=== PATIENT | female | born 1985 | race Caucasian/White ===

== ENCOUNTER 2022-10-03 14:13 | Outpatient (REF) | payer OTHER, SELFPAY ==
[2022-10-05 20:53] LABS: TS Negative Control Passed; TS Panel A 0; TS Panel B 0; TS Positive Control Passed; TSpotTB Negative (Negative)
== END 2022-10-03 14:14 | disposition home or self-care (01) ==
LOC: HO.HHCL 14:13
PROVIDERS: Visit Provider Registered Nurse
DX: Z00.00 Encounter for general adult medical examination without abnormal findings (principal); Z11.1 Encounter for screening for respiratory tuberculosis
CPT/HCPCS: 36415; 86481

== ENCOUNTER 2022-11-19 09:25 | Outpatient (REF) | payer OTHER, SELFPAY ==
[2022-11-19 11:17] LABS: MANUAL DIFF FLAG NO
[2022-11-19 11:35] LABS: Basophils Percent Auto 0.4 % (0-2); Eosinophils Absolute Auto 0.1 X10*3/uL (0.0-0.4); Eosinophils Percent Auto 1.9 % (0-4); Hematocrit 39.7 % (37.0-47.0); Imm Gran Abs Auto 0.02 X10*3/uL (0.00-0.03); Imm Gran Pct Auto 0.3 % (0.0-0.4); Lymphocytes Absolute Auto 1.4 X10*3/uL (1.2-4.9); Lymphocytes Percent Auto 18.7 % (20-40); Mean Corpuscular HGB Conc 32.7 g/dl (31.0-35.0); Mean Corpuscular Hemoglobin 30.7 pg (27.0-33.0); Mean Corpuscular Volume 93.6 fL (80.0-98.0); Mean Platelet Volume 10.8 fL (9.4-12.3); Monocytes Absolute Auto 0.7 X10*3/uL (0.1-1.2); Monocytes Percent Auto 9.7 % (2-11); Platelet Count 296 X10*3/uL (160-400); Red Blood Count 4.24 X10*6/uL (4.20-5.50); Red Cell Distribution Width 13.1 % (11.0-16.0); White Blood Count 7.3 X10*3/uL (4.8-10.8)
[2022-11-19 12:13] LABS: Estimated Average Glucose 100 mg/dL; Hemoglobin A1c % 5.1 % (<6.0)
[2022-11-19 12:29] LABS: Alanine Aminotransferase 16 U/L (0-31); Albumin Level 4.2 g/dL (3.5-5.0); Alkaline Phosphatase 39 U/L (39-117); Anion Gap 10 (12-20); Aspartate Amino Transferase 21 U/L (5-31); Bilirubin Total 0.6 mg/dL (0.0-1.0); Blood Urea Nitrogen 12 mg/dL (9-16); Carbon Dioxide 24 mmol/L (22-29); Chloride 106 mmol/L (96-108); Cholesterol 208 mg/dL (<200); Estimated Glomerular Filt Rate > 60; Glucose Random 85 mg/dL (60-115); HDL Cholesterol 94 mg/dL (>40); LDL Cholesterol Calculated 96 mg/dL (<100); Potassium 3.9 mmol/L (3.3-5.1); Sodium 136 mmol/L (135-145); TSH reflex Free T4 0.82 uIU/mL (0.32-4.0); Total Protein 7.6 g/dL (6.5-8.0); Triglycerides 94 mg/dL (<150)
[2022-11-19 13:11] LABS: CT PCR NOT DETECTED (Not Detect.); NG PCR NOT DETECTED (Not Detect.)
[2022-11-20 04:13] LABS: Syphilis Screen Nonreactive (Nonreactive)
[2022-11-20 08:18] LABS: HIV AB/AG Nonreactive (Nonreactive); HIV Num 1 0.07 S/CO (0.00-0.99)
[2022-11-20 14:17] LABS: HCV Log PCR <1.18 NOT DETECTED Log IU/mL (NOT DETECTED); HepC Viral Load <15 NOT DETECTED IU/mL (NOT DETECTED)
== END 2022-11-19 09:26 | disposition home or self-care (01) ==
LOC: HO.HHCL 09:25
PROVIDERS: Visit Provider Registered Nurse
DX: Z00.00 Encounter for general adult medical examination without abnormal findings (principal); Z20.2 Contact with and (suspected) exposure to infections with a predominantly sexual mode of transmission; Z13.29 Encounter for screening for other suspected endocrine disorder; Z13.1 Encounter for screening for diabetes mellitus; Z13.220 Encounter for screening for lipoid disorders
CPT/HCPCS: 0353U; 80053; 80061; 83036; 84443; 85025; 86780; 87389; 87522

== ENCOUNTER 2024-06-24 10:53 | Outpatient (REF) | payer OTHER, SELFPAY ==
--- OUTSIDE RECORDS SUMMARY | 2024-06-24 13:06 | XMS_ITS | Encounter Summary ---
Author Organization [employer] Address [address] [facility] 7t [place] [address] Care Team Providers Care Conductor Freight Name Role Phone CristyKelli mendieta CARRILLO Primary Care Provider [phone] Reason for Referral * Imaging (Routine) - Authorized Specialty Diagnoses / Procedures Referred By Contac t Referred To Contact Radiology Diagnoses Abnormal uterine bleeding Procedures US Pelvis Transvaginal Natalie Wayne NP [address] [place] [address] Phone: tel: fax: [address] Phone: tel: fax: Referral ID Status Reason Start Date Expiration Date V isits Requested Visits Authorized [id number] Authorized 06/24/2024 06/24/2025 1 1 * Imaging (Routine) - Authorized Specialty Diagnoses / Procedures Referred By Contac t Referred To Contact Radiology Diagnoses Abnormal uterine bleeding Procedures Us Pelvis complete Natalie Wayne NP [address] [place] [address] Phone: tel: fax: [address] Phone: tel: fax: Referral ID Status Reason Start Date Expiration Date V isits Requested Visits Authorized [id number] Authorized 06/24/2024 06/24/2025 1 1 Reason for Visit * Reason Comments Menstrual Problem Encounter Details Date Type Department Care Team ([facility] st Contact Info) Description 06/24/2024 10:00 AM EDT Office Visit [facility] [address] [place] [address] Natalie Wayne NP [address] [place] [address] Abnormal uterine bleeding (Primary Dx); Cervical cancer screening Social History Tobacco Use Types Packs/Day Years Used Date Smoking Tobacco: Never Assessed Depression Answer Date Recorded Patient Health Questionnaire-9 Score 0 11/14/2022 Housing Stability Answer Date Recorded What is your housing situation today? Not on adali e 11/11/[address] you li ve. Do you have problems with any of the following? None of the above 11/11/2023 Food Insecurity Answer Date Recorded Within the past 12 months, y ou worried that your food would run out before you got money to buy more: Never True 01/28/2023 Within the past 12 months,th e food you bought just didn't last and you didn't have enough money to get more: Never True 08/2022 Transportation Answer Date Recorded In the past 12 months, has l ack of transportation kept you from medical appts, meetings, work or from getting things needed for daily living? No 01/28/2023 Utilities Answer Date Recorded In the past 12 months, has t he electric, gas, oil or water company threatened to shut off services in your home? No 01/28/2023 Depression Answer Date Recorded Patient Health Questionnaire-2 Score 0 11/14/2022 Comments Unknown Sex and Gender Information Value Date Recorded Sex Assigned at Female 01/22/2022 10:14 AM EDT Legal Sex Female 10:14 AM EDT Gender Identity Female 01/22/2022 10:14 AM EDT Sexual Orientation Straight 01/22/2022 10 :14 AM EDT documented as of this encounter Last Filed Vital Signs Vital Sign Reading Time Taken Comments Blood Pressure 144/86 06/24/2024 9:44 AM EDT Pulse 76 06/24/2024 9:44 AM EDT Temperature 36.7 ??C (98.1 ??F) 06/24/2024 9:44 AM ED T Respiratory Rate 16 06/24/2024 9:44 AM EDT Oxygen Saturation 98% 06/24/2024 9:44 AM EDT Inhaled Oxygen Concentration - - Weight 77.1 kg (170 lb) 06/24/2024 9:44 AM EDT Height - - Body Mass Index 30.11 11/14/2022 2:44 PM EDT documented in this encounter Progress Notes * Natalie Wayne NP - 06/24/2024 10:00 AM EDT SUBJECTIVE: Suzi Mar is a 38 y.o. female who presents to the [facility] for a sick visit. Denies recent illness, injury, or hospitalization. HPI Complains of vaginal bleeding extending 3 weeks after normal menstrual pattern. LMP 06/05/24 with duration of 5 days. Had one day of spotting before heavy bleeding returned. Has been using regular size pads, changing 2-3x an hr. Feels tired and weak. Has bloating and abdominal cramping. This is affecting her normal routine as she is not able to go to the gym. She is sexually active with AMAB partner and does not use condoms. Had tubal ligation in 2016. Review of Systems Constitutional: Negative. Negative for chills and fever. Respiratory: Negative for chest tightness and shortness of breath. Cardiovascular: Negative for chest pain. Gastrointestinal: Negative for abdominal pain, constipation, diarrhea and nausea. Genitourinary: Positive for menstrual problem and vaginal bleeding. Negative for dysuria and vaginal discharge. Musculoskeletal: Negative for arthralgias, back pain, myalgias and neck pain. Skin: Negative. Negative for rash and wound. Neurological: Negative for weakness, light-headedness and headaches. Psychiatric/Behavioral: Negative for behavioral problems, confusion, decreased concentration and suicidal ideas. OBJECTIVE: Visit Vitals BP (!) 144/86 (BP Location: Left arm, Patient Position: Sitting, BP Cuff Size: Adult) Pulse 76 Temp 98.1 ??F (36.7 ??C) (Temporal) Resp 16 Wt 170 lb (77.1 kg) SpO2 98% BMI 30.11 kg/m?? BSA 1.85 m?? Patient Active Problem List Diagnosis Chronic constipation Generalized anxiety disorder Healthcare maintenance Office Visit on 06/24/2024 Component Date Value Ref Range Status Preg Test, Ur 06/24/2024 Negative Negative, Indeterminate, None Detected, Invalid, Specimen unsatisfactory for evaluation, Weakly Positive Final Physical Exam Exam conducted with a stereo equipment installer present (MAXIME Sanchez). Constitutional: General: She is not in acute distress. Appearance: Normal appearance. She is not ill-appearing. HENT: Head: Normocephalic and atraumatic. Right Ear: External ear normal. Left Ear: External ear normal. Nose: Nose normal. Eyes: General: No scleral icterus. Extraocular Movements: Extraocular movements intact. Pulmonary: Effort: Pulmonary effort is normal. No respiratory distress. Genitourinary: Labia: Right: No rash, tenderness, lesion or injury. Left: No rash, tenderness, lesion or injury. Vagina: No signs of injury and foreign body. No vaginal discharge, erythema or prolapsed vaginal ferguson. Cervix: Cervical bleeding present. No cervical motion tenderness. Comments: Small patch of brownish discoloration in 7 o'clock location of cervix Musculoskeletal: General: Normal range of motion. Cervical back: Normal range of motion. Neurological: General: No focal deficit present. Mental Status: She is alert and oriented to person, place, and time. Gait: Gait normal. Psychiatric: Mood and Affect: Mood normal. Behavior: Behavior normal. Assessment/Plan Diagnoses and all orders for this visit: Abnormal uterine bleeding Comments: -negative Hcg today -urine sample sent for STI testing -TSH and CBC ordered to eval for thyroid dysfunction or resulting anemia -imaging ordered to rule out structural causes -advised trial ibuprofen TID for bleeding -return to clinic if bleeding is persistent Orders: - CBC auto differential; Future - TSH W/Reflex to FT4; Future - POCT Urine - Chlamydia/N. Gonorrhoeae RNA, TMA, Urine; Future - Us Pelvis complete; Future - US Pelvis Transvaginal; Future - ibuprofen 800 MG tablet; Take 1 tablet (800 mg) by mouth 3 times daily for 10 days. Cervical cancer screening Comments: -per chart review last pap prossibly in 2002 -repeat in 5 years if normal today -will call with results Orders: - Pap Smear documented in this encounter Plan of Treatment Scheduled Orders Name Type Priority Associated Diagnoses Order Schedule CBC auto differential Lab Routine Abnormal uterine bleeding Expected: 06/24/2024 (Approximate), Expires: 06/24/2025 TSH W/Reflex to FT4 Lab Routine Abnormal uterine bleeding Expected: 06/24/2024 (Approximate), Expires: 06/24/2025 Chlamydia/N. Gonorrhoeae RNA, TMA, Urine Microbiology Routine Abnormal uterine bleeding Expected: 06/24/2024 (Approximate), Expires: 06/24/2025 Us Pelvis complete Imaging Routine Abnormal uterine bleeding Expected: 06/24/2024, Expires: 06/24/2025 US Pelvis Transvaginal Imaging Routine Abnormal uterine bleeding Expected: 06/24/2024, Expires: 06/24/2025 Pap Smear Pathology and Cytology Routine Cervical cancer screening Ordered: 06/24/2024 documented as of this encounter Procedures Procedure Name Priority Date/Time Associated Diagnosis Comments POCT , URINE Routine 06/24/2024 10:25 AM EDT Abnormal uterine bleeding documented in this encounter Results * POCT Urine (06/24/2024 10:25 AM EDT) Preg Test, Ur Negative Negative, Indeterminate, None Detected, Invalid, Specimen unsatisfactory for evaluation, Weakly Positive Urine 06/24/2024 10:2 5 AM EDT Natalieoumou Matson SUPERVISOR HOUSECLEANER POINT OF CARE TEST ENTER/EDIT O RDERABLES Final Result documented in this encounter Visit Diagnoses Diagnosis Abnormal uterine bleeding- Primary Unspecified disorder of menstruation and other abnormal bleeding from female genital tract Cervical cancer screening Screening for malignant neoplasm of the cervix documented in this encounter Additional Health Concerns Assessment Noted Time PHQ-9 Depression Total Score: 0 11/15/19 23 2:47 PM EDT documented as of this encounter Care Teams Conductor Freight Relationship Specialty Start Date End Date Kelli Combs FNP [address] [place] [id number] PCP - General Family Medicine 11/17/21 documented as of this encounter
--- OUTSIDE RECORDS SUMMARY | 2024-06-24 13:06 | XMS_ITS | Clinical Summary ---
Author Organization [facility] Address [address] [place] [address] Care Team Providers Care Image Editor Name Role Phone Unavailable Primary Care Provider Unavailabl e Social History Tobacco Use Types Packs/Day Years Used Date Smoking Tobacco: Never Assessed Comments Unknown Sex and Gender Information Value Date Recorded Sex Assigned at Not on file Legal Sex Female 3:51 AM EST Gender Identity Not on file Sexual Orientation Not on file Plan of Treatment Health Maintenance Due Date Last Done Comments Breast Cancer Screening 1983 DTaP,Tdap,and Td Vaccines (1 - Tdap) 07/30/2002 Hepatitis B Vaccines (1 of 3 - 19+ 3-dose series) 07/30/2002 Cervical Cancer Screening: P ap Smear 07/30/2004 COVID-19 Vaccine ( - 2023-2 5 season) 2023 Influenza Vaccine (Season Ended) 2024 HIB Vaccines Aged Out No longer eligi ble based on patient's age to complete this topic HPV Vaccines Aged Out No longer eligi ble based on patient's age to complete this topic Hepatitis A Vaccines Aged Out No long er eligible based on patient's age to complete this topic IPV Vaccines Aged Out No longer eligi ble based on patient's age to complete this topic MMR Vaccines Aged Out No longer eligi ble based on patient's age to complete this topic Meningococcal ACWY Vaccine Aged Out N o longer eligible based on patient's age to complete this topic Meningococcal B Vacine Aged Out No lo nger eligible based on patient's age to complete this topic Pneumococcal Vaccine: Pediat rics (0 to 5 Years) and At-Risk Patients (6 to 64 Years) Aged Out No longer eligible b ased on patient's age to complete this topic RSV Immunization Patients Un arik 20 months Aged Out No longer eligible b ased on patient's age to complete this topic Varicella Vaccines Aged Out No longer eligible based on patient's age to complete this topic
--- OUTSIDE RECORDS SUMMARY | 2024-06-24 13:06 | XMS_ITS | Encounter Summary ---
Author Organization [employer] Address [address] [place] [address] [address] [place] [address] Care Team Providers Care Application Support Developer Name Role Phone Kelli Combs Primary Care Provider [phone] Encounter Details Date Type Department Care Team ([facility] st Contact Info) Description 05/28/2022 Orders Only [facility] [address] [place], [place] [phone] Sarah Carreno LPN Social History Tobacco Use Types Packs/Day Years Used Date Smoking Tobacco: Never Assessed Comments Unknown Sex and Gender Information Value Date Recorded Sex Assigned at Female 01/22/2022 10:14 AM EDT Legal Sex Female 10:14 AM EDT Gender Identity Female 01/22/2022 10:14 AM EDT Sexual Orientation Straight 01/22/2022 10 :14 AM EDT documented as of this encounter Plan of Treatment Not on file documented as of this encounter Visit Diagnoses Not on filedocumented in this encounter Care Teams Application Support Developer Relationship Specialty Start Date End Date Kelli Combs FNP [address] [place] [address] PCP - General Family Medicine 11/17/21 documented as of this encounter
--- OUTSIDE RECORDS SUMMARY | 2024-06-24 13:06 | XMS_ITS | Clinical Summary ---
Author Organization [employer] Address [address] [place] [address] [address] [place] [address] Care Team Providers Care Custom Stock Maker Name Role Phone Kelli Combs CARRILLO Primary Care Provider [phone] Allergies Active Allergy Reactions Criticality Noted Date Comments Penicillins 12/04/2011 Medications PARoxetine (Paxil) 20 MG tablet Take 1 tablet (20 mg) by mouth Once daily. 90 tablet 3 11/14/2022 Active hydrOXYzine pamoate (Vistaril) 25 MG capsule Take 1 capsule (25 mg) by mouth if needed in the morning, at noon, and at bedtime for anxiety. 60 capsule 3 11/14/2022 Active Multiple Vitamin (multivitamin) tablet Take 1 tablet by mouth in the morning. Active ibuprofen 800 MG tabletIndicatio ns:Abnormal uterine bleeding Take 1 tablet (800 mg) by mouth 3 times daily for 10 days. 30 tablet 06/24/2024 5 Active Active Problems Problem Noted Date Diagnosed Date Healthcare maintenance 11/13/2022 Assessment & Plan (11/14/2022 6:21 PM EDT): PHQ: negative screen 11/14/22 STI: asymptomatic screening ordered 11/14/22 Contraception: s/p BTL Pap: due Smoking status: never-smoker Lipids: last WNL August 2017. Repeat ordered today. Mammogram: routine screening 43 y/o Colorectal Screening: routine screening 43 y/o DEXA: screen following menopause at 63 years Vaccines: updated Td 12/01/20 Last PE: 11/14/22 Chronic constipation 08/14/2016 Assessment & Plan (11/13/2022 7:46 PM EDT): ?? Continues with Miralax PRN ?? Lifestyle interventions including good hydration, movement, and fiber-rich diet Generalized anxiety disorder 08/14/2016 Assessment & Plan (11/14/2022 6:21 PM EDT): ?? Continues with paroxetine 20mg daily ?? Continue hydroxyzine 25mg PRN ?? Declines interest in behavioral health referral at this time. Follow up if interested in the future. Encounters Date Type Department Care Team Description 06/24/2024 10:00 AM EDT Office Visit [facility] [address] [place] [id number] Natalie Wayne NP Abnormal uterine bleeding (Primary Dx); Cervical cancer screening from Last 3 Months Immunizations Name Administration Dates Next Due DTP 10/10/1988, 6,04/09/1984,1983,1983 HPV, Quadrivalent 10/14/2007,03/05/2007,12/12/19 07 Hep B, adult 10/18/1999,11/14/1998,10/13/1998 Hib (HbO) 08/11/1985 IPV 10/10/1988, 6,01/11/1984,1983 Influenza, Split (incl. marizol fied surface antigen) 12/04/2011 MMR 01/26/1994,11/25/1984 TD (adult), 2 Lf tetanus tox oid, preservative free, adsorbed 12/01/2020,10/13/1998 Tdap 09/11/2010 Family History Medical History Relation Name Comments Diabetes Father Hypertension Father mild dementia Father Diabetes Mother Relation Name Status Comments Father Mother Social History Tobacco Use Types Packs/Day Years [...] Orientation Straight 01/22/2022 10 :14 AM EDT Last Filed Vital Signs Vital Sign Reading Time Taken Comments Blood Pressure 144/86 06/24/2024 9:44 AM EDT Pulse 76 06/24/2024 9:44 AM EDT Temperature 36.7 ??C (98.1 ??F) 06/24/2024 9:44 AM ED T Respiratory Rate 16 06/24/2024 9:44 AM EDT Oxygen Saturation 98% 06/24/2024 9:44 AM EDT Inhaled Oxygen Concentration - - Weight 77.1 kg (170 lb) 06/24/2024 9:44 AM EDT Height 160 cm (5' 3 ) 11/14/2022 2:44 PM EDT Body Mass Index 30.11 11/14/2022 2:44 PM EDT Plan of Treatment Health Maintenance Due Date Last Done Comments Alcohol/Substance Use Screening 1995 Tobacco Screening 1995 Family Planning (PISQ) 07/30/1998 Pap Smear 07/30/2004 Cervical Cancer Screening 07/30/2013 HPV/Cotest 07/30/2013 Mammogram 2023 SDOH Screening 11/06/2023 11/05/2022 Depression Screening 11/15/2023 11/14/2022, 11/15/19 COVID-19 Vaccine (3 season) 2023 09/02/2020, 08/12/2020 Influenza Vaccine (#1) 2023 12/04/2011 DTaP/Tdap/Td Vaccines (8 - Td or Tdap) 12/01/2030 12/01/2020, 09/11/2010, 10/13/1998, Additional history exists Zoster Vaccines (1 of 2) 07/30/2033 RSV Patients and Patients Aged 60 years or older (1 - 1-dose 75+ series) 07/30/2058 HIB Vaccines Completed 08/11/1985 IPV Vaccines Completed 10/10/1988, 04/26, 01/11/1984, Additional history exists Hepatitis B Vaccines Completed 10/18/1999, 11/14/1998, 10/13/1998 HPV Vaccines Completed 10/14/2007, 02/22, 12/11/2006 HIV Screening Completed 11/19/2022 Hepatitis C Screening Completed 11/19/2022 Hepatitis A Vaccines Aged Out No long er eligible based on patient's age to complete this topic Meningococcal Vaccine Aged Out No joshua lxea eligible based on patient's age to complete this topic Pneumococcal Vaccine: Pediatrics (0 to 5 Years) and At-Risk Patients (6 to 49) Years) Aged Out No longer eligible based on patient's age to complete this topic RSV under 20 months Aged Out No longe r eligible based on patient's age to complete this topic Rotavirus Vaccines Aged Out No longer eligible based on patient's age to complete this topic Procedures Procedure Name Priority Date/Time Associated Diagnosis Comments POCT , URINE Routine 06/24/2024 10:25 AM EDT Abnormal uterine bleeding HEPATITIS C VIRAL RNA, QUANTITATIVE, REAL-TIME PCR Routine 11/19/2022 9:30 AM EDT Healthcare maintenance HIV ANTIBODY/ANTIGEN ([place] [facility]) Routine 11/19/2022 9:30 AM EDT from Last 3 Months or Most Recently Relevant to Health Maintenance Results * POCT Urine (06/24/2024 10:25 AM EDT) Preg Test, Ur Negative Negative, Indeterminate, None Detected, Invalid, Specimen unsatisfactory for evaluation, Weakly Positive Urine 06/24/2024 10:2 5 AM EDT Natalie Tone BERNAL POINT OF CARE TEST ENTER/EDIT O RDERABLES Final Result * HIV Ab/Ag ([facility]) (11/19/2022 9:30 AM EDT) [facility] HIV AB/AG Nonreactive Nonreactive [facility] Comment:HIV-1 p24 Ag and/or HIV-1/HIV-2 Ab not detected.A test result that is nonreactive does not exclude thepossibility of exposure to or infection with HIV-1 and/orHIV-2. Nonreactive results in this assay for individualswith prior exposure to HIV-1 and/or HIV-2 may be due toantigen and antibody levels that are below the limit ofdetection of this assay.The [employer] HIV Ag/Ab Combo assay result andsupplemental assay results should be interpreted inconjunction with the patient's clinical presentation,history and other laboratory results. If the results areinconsistent with clinical evidence, additional testing issuggested to confirm the result. 11/19/2022 9:30 AM EDT 11/20/2022 7:44 AM EDT Kelli Combs MAT P[employer]ER LAB BLOOD ORDERABLES Final Res ult [facility] [address] [place] [phone] * Hepatitis C Viral RNA, Quantitative, Real-Time PCR (11/19/2022 9:30 AM EDT) [facility] Hepatitis C Viral Load <15 NOT DETECTED NOT DETECTED IU/mL [facility] HCV Log PCR <1.18 NOT DETECTED NOT DETECTED Log IU/mL [facility] Comment:This test was perfor med using Real-Time Polymerase ChainReaction.Reportable Range: 15 IU/mL to 100,000,000 IU/mL(1.18 Log IU/mL to 8.00 Log IU/mL).The analytical performance characteristics of thisassay have been determined by [employer].The modifications have not been cleared or approved bythe FDA. This assay has been validated pursuant to theCLIA regulations and is used for clinical purposes.For more information on this test, go to:http://education.[employer]-Digital/faq/CNY71w0(This link is being provided for informational/educational purposes only.)THIS TEST WAS PERFORMED AT:[employer] [place] [id number] MCKAY MD Blood 11/19/2022 9:30 AM EDT 11/19/2022 11:08 AM EDT Kelli Combs [facility] LAB BLOOD ORDERABLES Final Res ult [facility] [address] [place] [address] [phone] from Last 3 Months or Most Recently Relevant to Health Maintenance Insurance [facility] Care Teams Custom Stock Maker Relationship Specialty Start Date End Date Kelli Combs FNP [address] [place] [id number] PCP - General Family Medicine 11/17/21
--- OUTSIDE RECORDS SUMMARY | 2024-06-24 13:06 | XMS_ITS | Encounter Summary ---
Author Organization [employer] Address [address] [place] [address] [address] [place] [address] Care Team Providers Care Trial Court Judge Name Role Phone Kelli Combs Primary Care Provider [phone] Encounter Details Date Type Department Care Team ([facility] st Contact Info) Description 10/02/2022 Orders Only [facility] [address] [place], [place] [phone] Kelli Combs FNP [address] [place] [address] Health care maintenance Social History Tobacco Use Types Packs/Day Years Used Date Smoking Tobacco: Never Assessed Comments Unknown Sex and Gender Information Value Date Recorded Sex Assigned at Female 01/22/2022 10:14 AM EDT Legal Sex Female 10:14 AM EDT Gender Identity Female 01/22/2022 10:14 AM EDT Sexual Orientation Straight 01/22/2022 10 :14 AM EDT documented as of this encounter Plan of Treatment Scheduled Orders Name Type Priority Associated Diagnoses Orde r Schedule QuantiFERON??-TB Gold Plus, 1 Tube Lab Routine Health care maintenance Expected: 10/02/2022 (Approximate), Expires: 10/03/2023 documented as of this encounter Visit Diagnoses Diagnosis Health care maintenance documented in this encounter Care Teams Trial Court Judge Relationship Specialty Start Date End Date Kelli Combs FNP [address] [place] [address] PCP - General Family Medicine 11/17/21 documented as of this encounter
[2024-06-24 13:14] LABS: MANUAL DIFF FLAG NO
[2024-06-24 13:30] LABS: Basophils Absolute Auto 0.1 X10*3/uL (0.0-0.2); Basophils Percent Auto 0.9 % (0-2); Eosinophils Absolute Auto 0.2 X10*3/uL (0.0-0.4); Eosinophils Percent Auto 2.8 % (0-4); Hematocrit 35.6 % (37.0-47.0); Hemoglobin 11.5 g/dl (12.0-16.0); Imm Gran Abs Auto 0.02 X10*3/uL (0.00-0.03); Imm Gran Pct Auto 0.3 % (0.0-0.4); Lymphocytes Absolute Auto 1.7 X10*3/uL (1.2-4.9); Mean Corpuscular HGB Conc 32.3 g/dl (31.0-35.0); Mean Corpuscular Hemoglobin 27.7 pg (27.0-33.0); Mean Corpuscular Volume 85.8 fL (80.0-98.0); Mean Platelet Volume 10.1 fL (9.4-12.3); Monocytes Absolute Auto 0.7 X10*3/uL (0.1-1.2); Monocytes Percent Auto 10.5 % (2-11); Neutrophils Percent Auto 59.5 % (45-73); Platelet Count 366 X10*3/uL (160-400); Red Blood Count 4.15 X10*6/uL (4.20-5.50); White Blood Count 6.7 X10*3/uL (4.8-10.8)
[2024-06-24 13:59] LABS: TSH reflex Free T4 0.09 uIU/mL (0.32-4.0)
[2024-06-24 15:18] LABS: Free T4 (Free Thyroxine) 1.05 ng/dL (0.71-1.85)
[2024-06-25 02:17] LABS: CT PCR NOT DETECTED (Not Detect.); NG PCR NOT DETECTED (Not Detect.)
[2024-07-02 07:56] LABS: HPV Genotype 16 Negative (Negative); HPV Genotype 18 Negative (Negative); HPV High Risk Positive (Negative)
== END 2024-06-24 10:54 | disposition home or self-care (01) ==
LOC: HO.HHCL 10:53
PROVIDERS: Visit Provider Nurse Practitioner
DX: N93.9 Abnormal uterine and vaginal bleeding, unspecified (principal); Z12.4 Encounter for screening for malignant neoplasm of cervix; R87.612 Low grade squamous intraepithelial lesion on cytologic smear of cervix (LGSIL); R87.810 Cervical high risk human papillomavirus (HPV) DNA test positive
CPT/HCPCS: 36415; 84439; 84443; 85025; 87491; 87591; 87626; 88175

== ENCOUNTER 2024-07-29 12:59 | Outpatient (REF) | payer OTHER, SELFPAY ==
--- NOTE | ~2024-07-29 | US_ITS ---
CLINICAL HISTORY: AUB Transabdominal and transvaginal pelvic ultrasound Comparison: None Findings: Uterus 8.4 x 5.7 x 5.5 cm. Endometrium 9 mm. Small volume free fluid. Three uterine fibroids, largest 2.1 cm. Right ovary 3.6 x 1.4 x 1.3 cm. Left ovary 4.3 x 2.7 x 1.7 cm. No significant focal abnormality. Impression: Uterine fibroids, otherwise unremarkable This document has been electronically signed by: Zeeshan Phelps MD on 07/29/2024 18:37:38
--- OUTSIDE RECORDS SUMMARY | 2024-07-29 14:08 | XMS_ITS | Encounter Summary ---
Author Organization [employer] Address [address] [place] [address] [address] [place] [address] Care Team Providers Care Billing Typist Name Role Phone Kelli Combs Primary Care Provider [phone] Encounter Details Date Type Department Care Team (Late st Contact Info) Description 05/28/2022 Orders Only [facility] [address] [place], [place] [phone] Sarah Carreno LPN Social History Tobacco Use [...] on filedocumented in this encounter Care Teams Billing Typist Relationship Specialty Start Date End Date Kelli Combs FNP [address] [place] [address] PCP - General Family Medicine 11/17/21 documented as of this encounter
--- OUTSIDE RECORDS SUMMARY | 2024-07-29 14:08 | XMS_ITS | Clinical Summary ---
Author Organization [facility] ity Address [address] [place] [address] Care Team Providers Care Career Services Coordinator Name Role Phone Unavailable Primary Care Provider [...] age to complete this topic Meningococcal B Vaccine Aged Out No l onger eligible based on patient's age to complete [...]
--- OUTSIDE RECORDS SUMMARY | 2024-07-29 14:08 | XMS_ITS | Encounter Summary ---
Author Organization [employer] Address [address] [facility] [address] [place] [address] Care Team Providers Care Coach Name Role Phone Kelli Combs Primary Care Provider [phone] Encounter Details Date Type Department Care Team (Late st Contact Info) Description 10/02/2022 Orders Only [facility] [address] [place], [place] [phone] Kelli Combs FNP [address] [place] [address] Health care maintenance Social History Tobacco Use [...] maintenance documented in this encounter Care Teams Coach Relationship Specialty Start Date End Date Kelli oCmbs FNP [address] [place] [address] PCP - General Family Medicine 11/17/21 documented as of this encounter
--- OUTSIDE RECORDS SUMMARY | 2024-07-29 14:08 | XMS_ITS | Encounter Summary ---
Author Organization [employer] Address [address] [facility] 7t [place] [address] Care Team Providers Care Plastic Surgery Nurse Name Role Phone Kelli Combs CARRILLO Primary Care Provider [phone] Encounter Details Date Type Department Care Team (Late st Contact Info) Description 06/26/2024 Orders Only [facility] [address] [place], [place] [phone] Natalie Wayne NP [address] [place], [place] [phone] Subclinical hyperthyroidism (Primary Dx) Social History Tobacco Use Types Packs/Day Years [...] Type Priority Associated Diagnoses Orde r Schedule TSH W/Reflex to FT4 Lab Routine Subclinical hyperthyroidism Expected: 07/24/2024 (Approximate), Expires: 06/26/2025 T3, Total Lab Routine Subclinical hyperthyroidism Expected: 07/24/2024 (Approximate), Expires: 06/26/2025 documented as of this encounter Visit Diagnoses Diagnosis Subclinical hyperthyroidism- Primary Thyrotoxicosis without mention of goiter or other cause, without mention of thyrotoxic crisis or storm documented in this encounter Additional Health Concerns Assessment Noted Time PHQ-9 Depression Total Score: 0 11/15/19 23 2:47 PM EDT documented as of this encounter Care Teams Plastic Surgery Nurse Relationship Specialty Start Date End Date Kelli Combs FNP [address] [place] [phone] PCP - General Family Medicine 11/17/21 documented as of this encounter
--- OUTSIDE RECORDS SUMMARY | 2024-07-29 14:08 | XMS_ITS | Clinical Summary ---
Author Organization [employer] Address 75 [facility] 7t [place] [address] Care Team Providers Care Logistics Team Lead Name Role Phone Kelli Combs CARRILLO Primary Care Provider [phone] Allergies Active Allergy Reactions Criticality Noted Date [...] daily for 10 days. 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); Low grade squamous intraepithelial lesion (LGSIL) on Papanicolaou smear of vagina with positive (HPV) DNA test 06/29/[address] [address] Natalie Wayne NP Results 06/27/[address] [address] Fozia Graham RN Results; Lab Orders 06/26/2024 Orders Only [address] [address] Natalie Wayne NP Subclinical hyperthyroidism (Primary Dx) 06/24/2024 10:00 AM EDT Office Visit [facility] [address] [place] [address] Natalie Wayne NP Abnormal uterine bleeding (Primary Dx); Cervical cancer screening 06/24/2024 Orders Only [address] [address] Natalie Wayne NP from Last 3 Months Immunizations Name Administration Dates Next Due DTP 10/10/1988, 6,04/09/1984,1983,1983 HPV, Quadrivalent 10/14/2007,03/05/2007,12/12/19 07 Hep B, adult 10/18/1999,11/14/1998,10/13/1998 Hib (HbOC) 08/11/1985 IPV 10/10/1988, 6,01/11/1984,1983 Influenza, Split (incl. [...] Tobacco Screening 1995 Family Planning (PISQ) 07/30/1998 Mammogram 2023 SDOH Screening 11/06/2023 11/05/2022 Depression Screening 11/15/2023 11/14/2022, 11/15/19 COVID-19 Vaccine ( season) 2023 09/02/2020, 08/12/2020 Influenza Vaccine (#1) 2023 12/04/2011 Pap Smear 06/25/2027 06/24/2024 Cervical Cancer Screening 06/24/2029 HPV/Cotest 06/24/2029 06/24/2024 DTaP/Tdap/Td Vaccines (8 - Td or Tdap) [...] topic Meningococcal Vaccine Aged Out No joshua lexa eligible based on patient's age to complete [...] Procedure Name Priority Date/Time Associated Diagnosis Comments T4, FREE Routine 06/24/2024 10:56 AM EDT TSH W/REFLEX TO FT4 Routine 06/24/2024 1 0:56 AM EDT Abnormal uterine bleeding CBC WITH AUTO DIFFERENTIAL Routine 06/24/2024 10:56 AM EDT Abnormal uterine bleeding PAP SMEAR Routine 06/24/2024 10:55 AM EDT Cervical cancer screening HPV DNA, LOW/HIGH RISK Routine 06/24/2024 10:55 AM EDT CHLAMYDIA/N. GONORRHOEAE RNA, TMA, UROGENITAL Routine 06/24/2024 10:27 AM EDT POCT , URINE Routine 06/24/2024 10:25 AM EDT Abnormal uterine bleeding HEPATITIS C VIRAL RNA, QUANTITATIVE, REAL-TIME PCR Routine 11/19/2022 9:30 AM EDT Healthcare maintenance HIV ANTIBODY/ANTIGEN ([place] DPH) Routine 11/19/2022 9:30 AM EDT from Last 3 Months or Most Recently Relevant to Health Maintenance Results * (ABNORMAL) TSH W/Reflex to FT4 (06/24/2024 10:56 AM EDT) TSH reflex Free T4 0.09(L) 0.32 - 4.0 uIU/mL [facility] Blood Venous blood specimen / Unknown 06/24/2024 10:56 AM EDT 06/24/2024 1:05 PM EDT us Natalie Appram TOOL ENGINEER LAB BLOOD ORDERABLES Final Resu lt [facility] [address] [place] [phone] * (ABNORMAL) CBC auto differential (06/24/2024 10:56 AM EDT) Pathologist [facility] White Blood Count 6.7 4.8 - 10.8 X10*3/uL [facility] Red Blood Count 4.15(L) 4.20 - 5.50 X10*6/uL [facility] Hemoglobin 11.5(L) 12.0 - 16.0 g/dl [facility] Hematocrit 35.6(L) 37.0 - 47.0 % [facility] Mean Corpuscular Volume 85.8 80.0 - 98.0 fL [facility] Mean Corpuscular Hemoglobin 27.7 27.0 - 33.0 pg [facility] Mean Corpuscular HGB Conc 32.3 31.0 - 35.0 g/dl [facility] Red Cell Distribution Width 17.0(H) 11.0 - 16.0 % [facility] Platelet Count 366 160 - 400 X10*3/uL [facility] Mean Platelet Volume 10.1 9.4 - 12.3 fL [facility] Neutrophils Percent Auto 59.5 45 - 73 % [facility] Imm Gran Pct Auto 0.3 0.0 - 0.4 % [facility] Lymphocytes Percent Auto 26.0 20 - 40 % [facility] Monocytes Percent Auto 10.5 2 - 11 % [facility] Eosinophils Percent Auto 2.8 0 - 4 % [facility] Basophils Percent Auto 0.9 0 - 2 % [facility] NRBC Pct Auto 0.0 0.0 - 0.2 /100WBC [facility] Neutrophils Absolute Auto 4.0 2.0 - 8.3 x10*3/uL [facility] Imm Gran Abs Auto 0.02 0.00 - 0.03 X10*3/uL [facility] Lymphocytes Absolute Auto 1.7 1.2 - 4.9 X10*3/uL [facility] Monocytes Absolute Auto 0.7 0.1 - 1.2 X10*3/uL [facility] Eosinophils Absolute Auto 0.2 0.0 - 0.4 X10*3/uL [facility] Basophils Absolute Auto 0.1 0.0 - 0.2 X10*3/uL [facility] NRBC Abs Auto 0.000 0.0 - 0.012 X10*3/uL [facility] Blood Venous blood specimen / Unknown 06/24/2024 10:56 AM EDT 06/24/2024 1:05 PM EDT [facility] TOOL ENGINEER LAB BLOOD ORDERABLES Final Resu lt [facility] [address] [place] [phone] * T4, Free (06/24/2024 10:56 AM EDT) Pathologist [facility] Free T4 (Free Thyroxine) 1.05 0.71 - 1.85 ng/dL [facility] 06/24/2024 10:5 6 AM EDT 06/24/2024 1:05 PM EDT [facility] TOOL ENGINEER LAB BLOOD ORDERABLES Final Resu lt Performing Organization Address City/[facility]/ZIP Co de Phone Number [facility] [address] [place] [phone] * (ABNORMAL) HPV DNA, Low/High Risk (06/24/2024 10:55 AM EDT) HPV High Risk Positive(A) Negative [facility] HPV Genotype 16 Negative Negative [facility] HPV Genotype 18 Negative Negative [facility] Comment:HPV testing performe d at [facility] (CLIA#[id number]), [address] [place] [phone].Testing for HPV was performed using the Kristy JACKIE 6800system. The presence of HPV in the female genital tract isassociated with a number of diseases, including cervicalcarcinoma. The HPV DNA high risk pool tests for HPV 31, 33,35, 39, 45, 51, 52, 56, 58, 59, 66 and 68. The testing forHPV 16 and 18 genotypes has also been performed. A positiveresult indicates detection of nucleic acid sequences fromone or more subtypes, whereas a negative result indicatessuch sequences were not detected. 06/24/2024 10:5 5 AM EDT 06/25/2024 7:27 AM EDT Natalie Wayne NP LAB BLOOD ORDERABLES Final Resu lt [facility] [address] [place] [phone] * Pap Smear (06/24/2024 10:55 AM EDT) Swab Cervix uteri structure / Unknown 06/24/2024 10:55 AM EDT 06/25/2024 6:11 AM EDT Ashli [facility] - 06/29/2024 2:38 PM EDT ----- ------- Name: Suzi Mar ? Age/Sex: 38/F ? : 1985 Unit#: [id number] ?? Attend Dr: Natalie Wayne ?Re06/24/24 ?Status: DEP REF ? Location: [facility] ? Disch: ? ----- ------- SPEC : [id number] ? RECD: 06/25/24 ? STATUS: ??SOUT ? REQ NUM: [id number] ? CHARLES: 06/24/24-1054 ? SUBM DR: Natalie Wayne ? ENTERED: ??06/25/24 ?SP TYPE: Pap Smr ?OTHR DR: ? ORDERED: ??Pap Smear, PAP path review ? Interpretation ?? General Category: ? Epithelial cell abnormality. ?? Adequacy: ?Endocervical component present. ?? Interpretation: ? Low grade squamous intraepithelial lesion (TETO I). ?Clue cells present. ? HPV High Risk: ??Positive ? HPV Genotyping 16: ??Negative ?? HPV Genotyping 18: ??Negative ?Clinical Information LMP: 06/05/2024 (still bleeding) Previous PAP test: 2002 Other surgery: Tubal ligation Other history: ? Material Received ?? ThinPrep-Cervical ----- ------- Signed (signature on file) Geri Remedios 06/29/24 1438 ? ----- ------- ? END OF REPORT ? us Natalie Wayne NP LAB CYTOLOGY ORDERABLES Final R esult [facility] [address] [place] [phone] * Chlamydia/N. Gonorrhoeae RNA, TMA, Urogenitial (06/24/2024 10:27 AM EDT) CT PCR NOT DETECTED Not Detect. [facility] Comment:A not detected test result does not exclude the possibilityof infection because test results can be affected byimproper specimen collection, concurrent antibiotic therapy,or the number of organisms in the specimen which may bebelow the sensitivity of the test. As with many diagnostictests, results from the Xpert CT/NG assay should beinterpreted in conjunction with other laboratory andclinical data available to the clinician.Xpert CT/NG performance has not been evaluated in patientsless than 14 years of age. The assay should not be used forthe evaluationof suspected sexual abuse or for other medico-legalindications. Additional testing is recommended in anycircumstance when false positive or false negative resultscould lead to adverse medical, social or psychologicalconsequences. NG PCR NOT DETECTED Not Detect. [facility] Comment:A not detected test result does not exclude the possibilityof infection because test results can be affected byimproper specimen collection, concurrent antibiotic therapy,or the number of organisms in the specimen which may bebelow the sensitivity of the test. As with many diagnostictests, results from the Xpert CT/NG assay should beinterpreted in conjunction with other laboratory andclinical data available to the clinician.Xpert CT/NG performance has not been evaluated in patientsless than 14 years of age. The assay should not be used forthe evaluationof suspected sexual abuse or for other medico-legalindications. Additional testing is recommended in anycircumstance when false positive or false negative resultscould lead to adverse medical, social or psychologicalconsequences. 06/24/2024 10:2 7 AM EDT 06/24/2024 6:23 PM EDT Narrative [facility] - 06/25/2024 2:17 AM EDT Urine us Natalie Wayne NP LAB MICROBIOLOGY - GENERAL MEGAN WING Final Result [facility] [address] [place] [phone] * POCT Urine (06/24/2024 10:25 AM EDT) [facility] Preg Test, Ur Negative Negative, Indeterminate, None Detected, Invalid, Specimen unsatisfactory for evaluation, Weakly Positive Urine 06/24/2024 10:2 5 AM EDT Natalie Wayne NP POINT OF CARE TEST ENTER/EDIT O RDERABLES Final Result * HIV Ab/Ag ([facility]) (11/19/2022 9:30 AM EDT) [facility] HIV AB/AG Nonreactive Nonreactive [facility] Comment:HIV-1 p24 Ag and/or HIV-1/HIV-2 Ab not detected.A test result that is nonreactive does not exclude thepossibility of exposure to or infection with HIV-1 and/orHIV-2. Nonreactive results in this assay for individualswith prior exposure to HIV-1 and/or HIV-2 may be due toantigen and antibody levels that are below the limit ofdetection of this assay.The [employer] Compliance Manager HIV Ag/Ab Combo assay result andsupplemental assay results should be interpreted inconjunction with the patient's clinical presentation,history and other laboratory results. If the results areinconsistent with clinical evidence, additional testing issuggested to confirm the result. 11/19/2022 9:30 AM EDT 11/20/2022 7:44 AM EDT Kelli Combs REAL ESTATE SALESPERSON LAB BLOOD ORDERABLES Final Res ult [facility] [address] [place] [phone] * Hepatitis C Viral RNA, Quantitative, Real-Time PCR (11/19/2022 9:30 AM EDT) [facility] Hepatitis C Viral Load <15 NOT DETECTED NOT DETECTED IU/mL [facility] HCV Log PCR <1.18 NOT DETECTED NOT DETECTED Log IU/mL [facility] Comment:This test was perfor med using Real-Time Polymerase ChainReaction.Reportable Range: 15 IU/mL to 100,000,000 IU/mL(1.18 Log IU/mL to 8.00 Log IU/mL).The analytical performance characteristics of thisassay have been determined by [facility] [facility].The modifications have not been cleared or approved bythe FDA. This assay has been validated pursuant to theCLIA regulations and is used for clinical purposes.For more information on this test, go to:http://education.[facility]/faq/TNA03e9(This link is being provided for informational/educational purposes only.)THIS TEST WAS PERFORMED AT:[email or web address] [place] [id number] MCKAY MD Blood 11/19/2022 9:30 AM EDT 11/19/2022 11:08 AM EDT Kelli Combs REAL ESTATE SALESPERSON LAB BLOOD ORDERABLES Final Res ult [facility] [address] [place] [phone] from Last 3 Months or Most Recently Relevant to Health Maintenance Insurance [facility] , [address] [place] [address] Care Teams Logistics Team Lead Relationship Specialty Start Date End Date Kelli Combs FNP [address] [place] [phone] PCP - General Family Medicine 11/17/21
== END 2024-07-29 13:00 | disposition home or self-care (01) ==
LOC: HO.US 12:59
PROVIDERS: PCP Nurse Practitioner Family; Visit Provider Nurse Practitioner
DX: N93.9 Abnormal uterine and vaginal bleeding, unspecified (principal)
CPT/HCPCS: 76830; 76856

== ENCOUNTER → 2024-07-29 13:01 | Outpatient (BNV) | payer OTHER, SELFPAY | PROVIDERS: PCP Nurse Practitioner Family; Visit Provider Radiology Diagnostic Radiology | DX: D25.9 Leiomyoma of uterus, unspecified (principal) | CPT/HCPCS: 76830; 76856 ==

== ENCOUNTER 2025-03-24 08:36 | Outpatient (AMB) | payer OTHER, SELFPAY ==
--- OUTSIDE RECORDS SUMMARY | 2025-03-24 08:39 | XMS_ITS | Encounter Summary ---
Author Organization [employer] Address [address] [place] [address] [address] [place] [address] Care Team Providers Care Timber Management Assistant Name Role Phone Kelli Combs Primary Care Provider [phone] Encounter Details Date Type Department Care Team ([facility] st Contact Info) Description 05/28/[address] [facility] MEDICINE [address] [place], [place] [phone] Sarah Carreno LPN Social History Tobacco Use [...] on filedocumented in this encounter Care Teams Timber Management Assistant Relationship Specialty Start Date End Date Kelli Combs FNP [address] [place] [address] PCP - General Family Medicine 11/17/21 documented as of this encounter
--- OUTSIDE RECORDS SUMMARY | 2025-03-24 08:39 | XMS_ITS | Encounter Summary ---
Author Organization [employer] Address [address] [facility] 7t [place] [address] Care Team Providers Care Eight Section Blower Name Role Phone Kelli Combs CARRILLO Primary Care Provider [phone] Encounter Details Date Type Department Care Team ([facility] st Contact Info) Description 06/26/2024 Orders Only [facility] MEDICINE [address] [place], [place] [phone] Natalie Wayne NP [address] [place], [place] [phone] Subclinical hyperthyroidism (Primary Dx) Social History Tobacco [...] documented as of this encounter Care Teams Eight Section Blower Relationship Specialty Start Date End Date Kelli Combs FNP [address] [place] [phone] PCP - General Family Medicine 11/17/21 documented as of this encounter
--- OUTSIDE RECORDS SUMMARY | 2025-03-24 08:39 | XMS_ITS | Encounter Summary ---
Author Organization [employer] Address [address] [place] [address] [address] [place] [address] Care Team Providers Care Para Educator Name Role Phone Kelli Combs Primary Care Provider [phone] Encounter Details Date Type Department Care Team ([facility] st Contact Info) Description 10/02/2022 Orders Only [facility] MEDICINE [address] [place], [place] [phone] Kelli Combs FNP [address] [place] [address] Health care maintenance Social History Tobacco Use [...] Type Priority Associated Diagnoses Orde r Schedule QuantiFERON -TB Gold Plus, 1 Tube Lab Routine Health care maintenance Expected: 10/02/2022 (Approximate), Expires: 10/03/2023 documented as of this encounter Visit Diagnoses Diagnosis Health care maintenance documented in this encounter Care Teams Para Educator Relationship Specialty Start Date End Date Kelli Combs FNP [address] [place] [address] PCP - General Family Medicine 11/17/21 documented as of this encounter
--- OUTSIDE RECORDS SUMMARY | 2025-03-24 08:39 | XMS_ITS | Clinical Summary ---
Author Organization [facility] Address [address] [place] [address] Care Team Providers Care Towel Distributor Name Role Phone Unavailable Primary Care Provider [...] Cervical Cancer Screening: P ap Smear 07/30/2004 HPV Vaccines (1 - 3-dose SCD M series) 07/30/2010 Depression Screening 03/25/2024 COVID-19 Vaccine ( - 2024-2 6 season) 2024 Influenza Vaccine (#1) 2024 RSV Immunization Adult Patie nts (1 - 1-dose 75+ series) 07/30/2058 HIB Vaccines Aged Out No longer eligi [...] 5 Years) and At-Risk Patients (6 to 49 Years) Aged Out No longer eligible b ased on patient's age to complete this topic RSV Immunization Patients Un arik 20 months Aged Out No longer eligible b ased on patient's age to complete this topic Varicella Vaccines Aged Out No longer eligible based on patient's age to complete this topic
--- OUTSIDE RECORDS SUMMARY | 2025-03-24 08:39 | XMS_ITS | Clinical Summary ---
Author Organization [employer] Address [address] [place] [address] [address] [place] [address] Care Team Providers Care Inspector Fabric Name Role Phone Kelli Combs CARRILLO Primary Care Provider [phone] Allergies Active Allergy Reactions Criticality Noted Date [...] tablet by mouth in the morning. Active Active Problems Problem Noted Date Diagnosed [...] Assessment & Plan (11/13/2022 7:46 PM EDT): Continues with Miralax PRN Lifestyle interventions including good hydration, movement, and fiber-rich diet Generalized anxiety disorder 08/14/2016 Assessment & Plan (11/14/2022 6:21 PM EDT): Continues with paroxetine 20mg daily Continue hydroxyzine 25mg PRN Declines interest in behavioral health referral at this time. Follow up if interested in the future. Immunizations Immunization Administration Dates Next Due DTP 10/10/1988, 6,04/09/1984,1983,1983 HPV, Quadrivalent 10/14/2007,03/05/2007,12/12/19 07 Hep B, adult 10/18/1999,11/14/1998,10/13/1998 Hib (HbOC) 08/11/1985 IPV 10/10/1988, 6,01/11/1984,1983 Influenza, Split (incl. mraizol fied surface antigen) 12/04/2011 MMR 01/26/1994,11/25/1984 TD [...] t he electric, gas, oil or water [employer] threatened to shut off services in your [...] 76 06/24/2024 9:44 AM EDT Temperature 36.7 C (98.1 F) 06/24/2024 9:44 AM EDT Respiratory Rate 16 06/24/2024 9:44 AM EDT Oxygen Saturation 98% 06/24/2024 9:44 AM EDT Inhaled Oxygen Concentration - - Weight 77.1 kg (170 lb) 06/24/2024 9:44 AM EDT Height 160 cm (5' 3 ) 11/14/2022 2:44 PM EDT Body Mass Index 30.11 11/14/2022 2:44 PM EDT Plan of Treatment Health Maintenance Due Date Last Done Comments Disability Screening 1985 Alcohol/Substance Use Screening 1995 Tobacco Screening 1995 Family Planning (PISQ) 07/30/1998 Mammogram 2023 SDOH Screening 11/06/2023 11/05/2022 Depression Screening 11/15/2023 11/14/2022, 11/15/19 23 COVID-19 Vaccine ( season) 2024 09/02/2020, 08/12/2020 Influenza Vaccine (#1) 2024 12/04/2011 Pap Smear 06/25/2027 06/24/2024 Cervical Cancer [...] Years) and At-Risk Patients (6 to 49) Years Aged Out No longer eligible based on patient's age to complete this topic RSV under 20 months Aged Out No longe r eligible based on patient's age to complete this topic Rotavirus Vaccines Aged Out No longer eligible based on patient's age to complete this topic Procedures Procedure Name Priority Date/Time Associated Diagnosis Comments HPV DNA, LOW/HIGH RISK Routine 06/24/2024 10:55 AM EDT PAP SMEAR Routine 06/24/2024 10:55 AM EDT Cervical cancer screening HEPATITIS C VIRAL RNA, QUANTITATIVE, REAL-TIME PCR Routine 11/19/2022 9:30 AM EDT Healthcare maintenance HIV ANTIBODY/ANTIGEN ([place] DPH) Routine 11/19/2022 9:30 AM EDT from Last 3 Months or Most Recently Relevant to Health Maintenance Results * (ABNORMAL) HPV DNA, Low/High Risk (06/24/2024 10:55 AM EDT) HPV High Risk Positive(A) Negative [facility] HPV Genotype 16 Negative Negative [facility] HPV Genotype 18 Negative Negative [facility] Comment:HPV testing performe d at [facility] (CLIA#[id number]), [address] [place] [id number].Testing for HPV was performed using the Kristy [...] 5 AM EDT 06/25/2024 7:27 AM EDT us Natalie Wayne SALES TRAINING REPRESENTATIVE LAB BLOOD ORDERABLES Final Resu lt [facility] [address] [place] [phone] * Pap Smear (06/24/2024 10:55 AM EDT) Swab Cervix uteri structure / Unknown 06/24/2024 10:55 AM EDT 06/25/2024 6:11 AM EDT Ashli [facility] - 06/29/2024 2:38 PM EDT ----- ------- Name: MarSuzi Age/Sex: 38/F : 1985 Unit#: [id number] Attend Dr: Natalie Wayne Re06/24/24 Status: DEP REF Location: [facility] [address] Disch: ----- ------- SPEC : [id number] RECD: 06/25/24 STATUS: SANDY PAZ NUM: [id number] CHARLES: 06/24/[address] [facility] DR: Natalie Wayne ENTERED: 06/25/24 SP TYPE: Pap Smr OTHR DR: ORDERED: Pap Smear, PAP path review Interpretation General Category: Epithelial cell abnormality. Adequacy: Endocervical component present. Interpretation: Low grade squamous intraepithelial lesion (TETO I). Clue cells present. HPV High Risk: Positive HPV Genotyping 16: Negative HPV Genotyping 18: Negative Clinical Information LMP: 06/05/2024 (still bleeding) Previous PAP test: 2002 Other surgery: Tubal ligation Other history: Material Received ThinPrep-Cervical ----- ------- Signed (signature on file) Geri Whittaker 06/29/24 1438 ----- ------- END OF REPORT Natalie Wayne NP LAB CYTOLOGY ORDERABLES Final R esult [facility] [address] [place] [address] [phone] * HIV Ab/Ag (HELGA HENDERSON) (11/19/2022 9:30 AM EDT) Pathologist [facility] [place] HIV AB/AG Nonreactive Nonreactive [facility] Comment:HIV-1 p24 Ag and/or HIV-1/HIV-2 Ab not detected.A test result that is nonreactive does not exclude thepossibility of exposure to or infection with HIV-1 and/orHIV-2. Nonreactive results in this assay for individualswith prior exposure to HIV-1 and/or HIV-2 may be due toantigen and antibody levels that are below the limit ofdetection of this assay.The [employer] Director Of Sales Support HIV Ag/Ab Combo assay result andsupplemental assay results should be interpreted inconjunction with the patient's clinical presentation,history and other laboratory results. If the results areinconsistent with clinical evidence, additional testing issuggested to confirm the result. 11/19/2022 9:30 AM EDT 11/20/2022 7:44 AM EDT Kelli Combs [facility] LAB BLOOD ORDERABLES Final Res ult [facility] [address] [place] [address] [phone] * Hepatitis C Viral RNA, Quantitative, Real-Time PCR (11/19/2022 9:30 AM EDT) Pathologist [facility] [place] Hepatitis C Viral Load <15 NOT DETECTED NOT DETECTED IU/mL [facility] HCV Log PCR <1.18 NOT DETECTED NOT DETECTED Log IU/mL [facility] Comment:This test was perfor med using Real-Time Polymerase ChainReaction.Reportable Range: 15 IU/mL to 100,000,000 IU/mL(1.18 Log IU/mL to 8.00 Log IU/mL).The analytical performance characteristics of thisassay have been determined by [employer].The modifications have not been cleared or approved bythe FDA. This assay has been validated pursuant to theCLIA regulations and is used for clinical purposes.For more information on this test, go to:http://education.Ordoro.Konotor/faq/HZX48f0(This link is being provided for informational/educational purposes only.)THIS TEST WAS PERFORMED AT:[facility] [place] [phone] MCKAY MD Blood 11/19/2022 9:30 AM EDT 11/19/2022 11:08 AM EDT us Kelli Combs FEEDLOT MANAGER LAB BLOOD ORDERABLES Final Res ult [facility] [address] [place] [address] [phone] from Last 3 Months or Most Recently Relevant to Health Maintenance Insurance [facility] , [address] [place] [address] [address] [place] [address] Care Teams Inspector Fabric Relationship Specialty Start Date End Date Kelli Combs FNP [address] [place] [address] PCP - General Family Medicine 11/17/21
--- NOTE | 2025-03-24 08:49 | MHC.OFFVIS ---
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 Present (Aviva SWARTZ) Accompanied by: Self / Same As Patient Allergies Penicillins Allergy (Unknown, Unverified 03/24/25 08:56) ANAPHYLAXIS Is last menstrual period known: Yes Last menstrual period: 02/25/25 HPI Comments Details: Presenting referred from PCP regarding abnormal Pap smear showing LSIL HPV positive HPV 16/18 negative No previous screening mammogram PFSH Medical History (Updated 03/24/25 @ 09:07 by Timo Chavarria MD) Depression Anemia Anxiety Surgical History (Updated 03/24/25 @ 08:59 by Aviva Marin CMA) Hx of hernia repair Hx of tubal ligation Family History (Updated 03/24/25 @ 09:00 by Aviva aMrin CMA) Father Dementia HTN (hypertension) Diabetes Heart disease Mother Diabetes Social History (Updated 03/24/25 @ 09:02 by Aviva Marin CMA) Household Members Other:: dad Housing: Apartment Alcohol intake: current Alcohol intake frequency: holidays/special occasions only Patient Tobacco Use Status: Never used Tobacco Use of substances other than those prescribed or required for medical reasons: Yes Substance Use Type: Marijuana Substance Use Frequency: Occasionally Substance Use Frequency Other:: gummies Current occupational status: employed 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 Sexually active: Yes Sexual orientation: Straight/Heterosexual Gender identity: Female Female Reproductive History Menstrual Age of Menarche: 12 Duration of menses: 3-5 days Date of last menstrual period: 02/25/25 control method: permanent sterilization Total pregnancies: 1 Full term: 1 Number of Living Children: 1 Date of last pap smear: 06/25/24 History of abnormal pap smear: Yes (TETO , HPV +) Review of Systems Const All systems reviewed & are unremarkable except as noted in HPI and below Reports as per HPI and Reports no additional complaints GI Reports no additional complaints Reports no additional complaints Physical Exam Vital Signs: BMI result Body Mass Index 25.7 Office Procedures Colposcopy Colposcopy: Pre-Procedure Counseling: Before beginning the procedure, I conducted comprehensive counseling with the patient. We thoroughly discussed the procedure itself, including its details, alternatives, and all associated risks. This included but not limited to the following complications such as bleeding, infection, and injury to the vagina, bladder, and vessels, as well as the potential need for transfusion with all its associated risks. Subsequently, the patient sign the consent. Pap smear result: LSIL. Urine test in office = Negative Procedure: During the procedure, the following steps were performed: A speculum was inserted, and acetic acid was applied. Colposcopy was conducted, allowing visualization of the transformation zone. Acetowhite lesions were identified at the 5+ 6+ 11+ 12+ 1 o'clock position. Cervical biopsies were obtained from the 5+ 6+ 11+ 12+1 o'clock position, followed by an endocervical curettage (ECC). Vaginoscopy of the upper vagina revealed no evidence of aceto-white lesions. Hemostasis was achieved using Monsel solution, and the patient tolerated the procedure well. Post-Procedure Instructions: The patient was advised to promptly contact the office or the after hours answering service or go to the emergency room if experiencing a temperature exceeding 100.4?F, abdominal pain, nausea/vomiting, or bleeding. Additionally, the patient was instructed to abstain from vaginal intercourse and bathtub use. The patient confirmed understanding of these instructions. Discharge Instructions: The patient was instructed to schedule a follow-up appointment in 2 weeks for further evaluation and management. Please note that this note was generated using a voice recognition program, and errors may have occurred during ranch hand supervisor. [id number] of cervix including upper vagina with biopsy and ECC Procedure code (CPT) selection complete Results AMB Test Urine AMB Test Urine Negative Last Edit by Aviva Marin CMA on 03/24/25 09:07 Assessment & Plan Assessment & Plan (1) LGSIL on Pap smear of cervix: Comment: HPV positive, HPV 16/18 negative Code(s): R87.612 - Low grade squamous intraepithelial lesion on cytologic smear of cervix (LGSIL) Category: Medical Plan: Screening mammogram ordered. Discussed with the patient the result of her abnormal pap, its significance, risk of progression, persistence, and regression. the false positive/negative rate of a Pap smear as a screening test in detecting cervical cancer and the indication for a diagnostic test -colposcopy, biopsy, endocervical curettage. The patient verbalized understanding and agreed with the plan, all questions answered. Colposcopy, biopsy /ECC done, see procedure note Orders: Orders MM tomosynthesis screening BI Today Z12.31 - Encounter for screening mammogram for malignant neoplasm of breast AMB HCG Urine Test Today Z32.02 - Encounter for test, result negative AMB Colposcopy Today R87.612 - Low grade squamous intraepithelial lesion on cytologic smear of cervix (LGSIL) Coding Level of Care Code New Pt Level 3 (89327) Procedure Only Diagnoses LGSIL on Pap smear of cervix R87.612 CPT Codes Colposcopy - CPT: 17512-[id number] of cervix including upper vagina with biopsy and ECC ([id number])
[2025-03-24 08:55] VITALS: BMI 25.7
== END 2025-03-24 09:31 | disposition home or self-care (01) ==
LOC: HO.HWS 08:37
PROVIDERS: Visit Provider Obstetrics & Gynecology
DX: Z32.02 Encounter for pregnancy test, result negative (principal); R87.612 Low grade squamous intraepithelial lesion on cytologic smear of cervix (LGSIL)
CPT/HCPCS: 57454; 99203

== ENCOUNTER 2025-03-24 08:36 | Outpatient (REF) | payer OTHER, SELFPAY | END 2025-03-24 08:37 | disposition home or self-care (01) | LOC: HO.LNP 08:36 | PROVIDERS: Visit Provider Obstetrics & Gynecology | DX: R87.612 Low grade squamous intraepithelial lesion on cytologic smear of cervix (LGSIL) (principal); Z12.31 Encounter for screening mammogram for malignant neoplasm of breast; Z32.02 Encounter for pregnancy test, result negative | CPT/HCPCS: 57454; 81025; 88305 ==